=== PATIENT | female | born 1955 | race Caucasian/White ===

== ENCOUNTER 2017-12-17 19:59 | Emergency (ER) | payer MEDICAID, SELFPAY ==
[2017-12-17] VITALS (19 sets, daily range): BP systolic 162–192; BP diastolic 69–116; PULSE 60–82; RESP 18; TEMP 36.8; O2SAT 94–98
--- NOTE | 2017-12-17 19:51 | DI.CT_ITS ---
SYMPTOMS/DIAGNOSIS: FALL, RT FRONTAL TRAUMA, PAIN CT BRAIN: Noncontrast examination was performed. Comparison is 07/08/16. Prominence of the ventricles and sulci are present consistent with the patient's age. Areas of decreased attenuation are seen in the white matter consistent with small vessel ischemic disease. 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 No acute infarct, hemorrhage, midline shift or mass effect is identified. The ventricles are intact. The basilar cisterns are patent. There is no evidence of a skull fracture. There is a right frontal scalp hematoma present. IMPRESSION: 1. No acute intracranial process. 2. Right frontal scalp hematoma. CT SCAN OF THE CERVICAL SPINE: Multiple contiguous axial images of the cervical spine were obtained. Sagittal and coronal reformatted images were evaluated on the Siemens workstation. The odontoid is intact. The lateral masses are well aligned. There is normal alignment of the cervical spine. No acute fractures or subluxations are seen. Degenerative changes are present in the spine particularly at the C 5 - 6 level. The visualized lung apices are clear. There is a calcified lymph node seen in the left neck which is likely secondary to prior infection. IMPRESSION: No acute fracture or subluxation of the cervical spine.
--- NOTE | 2017-12-17 19:51 | W.ED.GENAD ---
Discharge Plan Disposition Patient Disposition: HOME Condition: Improving Discharge Details Chief Complaint: HeadInjury Clinical Impression: Contusion of hand, right, Contusion of forehead Reason For Visit: ILSA Primary Care Provider: José Doan ED Provider: Beto Bello Home Meds and New Rx's Prescriptions: Continue simvastatin 5 MG tablet 5 mg PO DAILY RF: 0 Discharge Instructions Instructions: Contusion in Adults (ED) Additional Instructions: You have a skin tear of the right hand for which a thin film/clear dressing was placed called Mepilex. This should stay in place for 7 days. You may remove the outer wrapping tomorrow. Continue efforts to decrease your alcohol use. Please follow-up with Dr. Doan for your routine care. You will develop bruising around the swelling of your right forehead as well as the right hand. Medical Decision Making 62-year-old female with ground-level mechanical fall with resultant right frontal head trauma and trauma to the dorsum of the right hand. Question of alcohol involvement. She arrives stable and interactive with obvious right frontal trauma. The patient states her tetanus is up to date. Patient said her tetanus status is up-to-date. She was referred for CT scan of the head & cervical spine and x-ray of the right hand. Laboratory analysis obtained. Patient is intoxicated with an alcohol level of 0.18. Her CBC, chemistries, INR are reassuring. Images do not reveal underlying osseous injury of the extremity. CT scan of the head and cervical spine are unremarkable. Patient was cleared from cervical spine precautions. Mepilex dressing was placed to the skin tear on the right hand which I will ask her to leave in place for 7 days. She will develop a hematoma of the right forehead as well as of the hand I discussed this with her. She is clinically sober, she lives at [facility] and is appropriate for discharge. HPI General Mode of arrival: EMS. Date/Time Provider Initiated Documentation: 12/17/17 20:09. Limitations to Documentation: no limitations. Information obtained by: patient and EMS. History of Present Illness described as mild, Quality is described as aching, and is localized to the head and right. Patient reports no radiation. Patient started experiencing this minute(s) No relieving factors improve symptom(s), No exacerbating factors reported . HPI Narrative: Fall and head injury: 62-year-old female states she had 3 alcoholic beverages tonight, was outside her home when she tripped and fell forward striking her head on the ground without loss of consciousness. She suffered right frontal hematoma and contusion to the right hand. She initially refused transport, return to home, then ambulance is called. States she has dull, achy, constant discomfort that is mild Related Data Home Medications Medication Instructions Recorded Confirmed simvastatin 5 mg PO DAILY tab-cap 08/25/15 Ibuprofen 400 mg PO Q6H PRN PRN 10/21/16 10/21/16 aspirin [Aspirin Low-Strength] 81 mg PO DAILY 10/21/16 10/21/16 atorvastatin [Lipitor] 40 mg PO QPM 10/21/16 10/21/16 clopidogrel [Plavix] 75 mg PO DAILY 10/21/16 10/21/16 lisinopril [Zestril] 30 mg PO DAILY 10/21/16 10/21/16 melatonin 6 mg PO DAILY 10/21/16 10/21/16 omeprazole 20 mg PO DAILY 10/21/16 10/21/16 Allergies Allergy/AdvReac Type Severity Reaction Status Date / Time No Known Allergies Allergy Unverified 12/17/17 20:55 General Stated Complaint: HeadInjury JACINDA: 2 Review of Systems Review of Systems 8 systems reviewed and otherwise - [facility] Social History Smoking/Tobacco Use Status: Current every day Exam Narrative Exam Narrative: GEN: awake, alert, oriented 3. Pleasant, well groomed, interactive. HEAD: Right frontal hematoma, atraumatic no bony tenderness ENT: Mucous membranes moist, oropharynx unremarkable, External ear exam unremarkable EYES: PERRL, EOMI NECK: Full ROM, no ERICA, no menigismus CHEST/RESP: Nontender, clear to auscultation bilateral, no wheeze/rhonchi/rales CARDIOVASCULAR: RRR, no murmur, rub thompson. 2+ Rad pulse bilateral ABDOMEN: Soft, nontender, no mass. +Bowel sounds EXT: Full ROM, no edema, no rash. Swelling and skin tear to the dorsum of the right hand Neuro: Grossly normal neurologic exam, conversant, interactive. Psych: Speech fluent, thoughts congruent, affect normal Course Vital Signs Temperature 36.8 C 12/17/17 19:42 Pulse 60 12/17/17 19:42 Respiratory Rate 18 12/17/17 19:42 Blood Pressure 166/104 H 12/17/17 19:42 Pulse Oximetry 98 12/17/17 19:42 Temperature 36.8 C 12/17/17 19:42 Temperature Source Temporal Artery Scan 12/17/17 19:42 Pulse 60 12/17/17 19:42 Respiratory Rate 18 12/17/17 19:42 Blood Pressure 166/104 H 12/17/17 19:42 Blood Pressure Position Supine 12/17/17 19:42 Pulse Oximetry 98 12/17/17 19:42 Oxygen Delivery Method Room Air 12/17/17 19:42 Oxygen Flow Rate 0 12/17/17 19:42
--- NOTE | 2017-12-17 19:56 | ED.GENADUL_ITS ---
Discharge Plan Disposition Patient Disposition: HOME Condition: Improving Discharge Details Chief Complaint: HeadInjury Clinical Impression: Contusion of hand, right, Contusion of forehead Reason For Visit: ILSA Primary Care Provider: José Doan ED Provider: Beto Bello Home Meds and New Rx's Prescriptions: Continue simvastatin 5 MG tablet 5 mg PO DAILY RF: 0 Discharge Instructions Instructions: Contusion in Adults (ED) Additional Instructions: You have a skin tear of the right hand for which a thin film/clear dressing was placed called Mepilex. This should stay in place for 7 days. You may remove the outer wrapping tomorrow. Continue efforts to decrease your alcohol use. Please follow-up with Dr. Doan for your routine care. You will develop bruising around the swelling of your right forehead as well as the right hand. Medical Decision Making 62-year-old female with ground-level mechanical fall with resultant right frontal head trauma and trauma to the dorsum of the right hand. Question of alcohol involvement. She arrives stable and interactive with obvious right frontal trauma. The patient states her tetanus is up to date. Patient said her tetanus status is up-to-date. She was referred for CT scan of the head & cervical spine and x-ray of the right hand. Laboratory analysis obtained. Patient is intoxicated with an alcohol level of 0.18. Her CBC, chemistries, INR are reassuring. Images do not reveal underlying osseous injury of the extremity. CT scan of the head and cervical spine are unremarkable. Patient was cleared from cervical spine precautions. Mepilex dressing was placed to the skin tear on the right hand which I will ask her to leave in place for 7 days. She will develop a hematoma of the right forehead as well as of the hand I discussed this with her. She is clinically sober, she lives at [facility] and is appropriate for discharge. HPI General Mode of arrival: EMS . Date/Time Provider Initiated Documentation: 12/17/17 20:09 . Limitations to Documentation: no limitations . Information obtained by: patient and EMS . History of Present Illness described as mild, Quality is described as aching, and is localized to the head and right. Patient reports no radiation. Patient started experiencing this minute(s) No relieving factors improve symptom(s), No exacerbating factors reported . HPI Narrative: Fall and head injury: 62-year-old female states she had 3 alcoholic beverages tonight, was outside her home when she tripped and fell forward striking her head on the ground without loss of consciousness. She suffered right frontal hematoma and contusion to the right hand. She initially refused transport, return to home, then ambulance is called. States she has dull, achy, constant discomfort that is mild Related Data Home Medications Medication Instructions Recorded Confirmed simvastatin 5 mg PO DAILY tab-cap 08/25/15 Ibuprofen 400 mg PO Q6H PRN PRN 10/21/16 10/21/16 aspirin [Aspirin Low-Strength] 81 mg PO DAILY 10/21/16 10/21/16 atorvastatin [Lipitor] 40 mg PO QPM 10/21/16 10/21/16 clopidogrel [Plavix] 75 mg PO DAILY 10/21/16 10/21/16 lisinopril [Zestril] 30 mg PO DAILY 10/21/16 10/21/16 melatonin 6 mg PO DAILY 10/21/16 10/21/16 omeprazole 20 mg PO DAILY 10/21/16 10/21/16 Allergies Allergy/AdvReac Type Severity Reaction Status Date / Time No Known Allergies Allergy Unverified 12/17/17 20:55 General Stated Complaint: HeadInjury JACINDA: 2 Review of Systems Review of Systems 8 systems reviewed and otherwise - [facility] Social History Smoking/Tobacco Use Status: Current every day Exam Narrative Exam Narrative: GEN: awake, alert, oriented 3. Pleasant, well groomed, interactive. HEAD: Right frontal hematoma, atraumatic no bony tenderness ENT: Mucous membranes moist, oropharynx unremarkable, External ear exam unremarkable EYES: PERRL, EOMI NECK: Full ROM, no ERICA, no menigismus CHEST/RESP: Nontender, clear to auscultation bilateral, no wheeze/rhonchi/rales CARDIOVASCULAR: RRR, no murmur, rub thompson. 2+ Rad pulse bilateral ABDOMEN: Soft, nontender, no mass. +Bowel sounds EXT: Full ROM, no edema, no rash. Swelling and skin tear to the dorsum of the right hand Neuro: Grossly normal neurologic exam, conversant, interactive. Psych: Speech fluent, thoughts congruent, affect normal Course Vital Signs Temperature 36.8 C 12/17/17 19:42 Pulse 60 12/17/17 19:42 Respiratory Rate 18 12/17/17 19:42 Blood Pressure 166/104 H 12/17/17 19:42 Pulse Oximetry 98 12/17/17 19:42 Temperature 36.8 C 12/17/17 19:42 Temperature Source Temporal Artery Scan 12/17/17 19:42 Pulse 60 12/17/17 19:42 Respiratory Rate 18 12/17/17 19:42 Blood Pressure 166/104 H 12/17/17 19:42 Blood Pressure Position Supine 12/17/17 19:42 Pulse Oximetry 98 12/17/17 19:42 Oxygen Delivery Method Room Air 12/17/17 19:42 Oxygen Flow Rate 0 12/17/17 19:42
--- NOTE | 2017-12-17 19:56 | DI.RAD_ITS ---
SYMPTOMS/DIAGNOSIS: FALL, DORSAL HAND PAIN AND SWELLING, ELBOW PAIN RIGHT ELBOW: Three views. No acute fracture or dislocation is identified. There is soft tissue swelling about the elbow. No radiopaque foreign bodies are present. IMPRESSION: No acute fracture or dislocation. RIGHT HAND: Three views. No priors. There is bandage material overlying the right hand which does obscure the underlying bony detail. The bones appear osteopenic. No definite acute fracture or dislocation is seen. IMPRESSION: 1. No acute abnormality. 2. Suboptimal examination due to overlying bandage material.
[2017-12-17] MEDS: Normal Saline 1,000 ML 150 ML IV (20:08)
[2017-12-17 20:13] LABS: Abs Immature Grans 0.01 k/cumm (0.0-0.09); Absolute Basophil Count 0.03 k/cumm (0.0-0.2); Absolute Eosinophil Count 0.04 k/cumm (0.0-0.7); Absolute Lymphocyte Count 1.61 k/cumm (1.2-3.4); Absolute Monocyte Count 0.55 k/cumm (0.11-0.7); Absolute Neutrophil Count 5.86 k/cumm (1.2-6.7); Basophils % 0.4; Eosinophils % 0.5; HCT 38.5 % (36.0-46.0); Immature Grans % 0.1; Lymphocytes % 19.9; Mean Corp. HGB Concentration 33.8 g/dL (32.0-36.0); Mean Corpuscular Hemoglobin 31.9 pg (27.0-33.0); Mean Corpuscular Volume 94.6 fL (80-95); Monocytes % 6.8; Neutrophils % 72.3; Platelet Count 264 x1000/uL (130-400); RBC 4.07 m/cumm (4.00-5.20); RBC Distribution Width 12.6 % (11.7-14.6)
[2017-12-17 20:17] LABS: Prothrombin Time 9.9 sec (9.3-10.8)
[2017-12-17 20:18] LABS: ETHANOL BLOOD 182.9 mg/dL (<3)
[2017-12-17 20:21] LABS: ALT 27 U/L (12-78); AST 28 U/L (15-37); Alkaline Phosphatase 89 U/L (46-116); Anion Gap 12.2 mmol/L (3-11); BUN 8 mg/dL (7-18); Bilirubin, Total 0.5 mg/dL (0.2-1.0); CO2 24.8 mmol/L (21.0-32.0); CREATININE 0.45 mg/dL (0.55-1.02); Calcium 8.7 mg/dL (8.5-10.1); Chloride 98 mmol/L (98-107); Glucose 84 mg/dL (70-100); Potassium 3.6 mmol/L (3.5-5.1); Sodium 135 mmol/L (136-145)
--- NOTE | 2017-12-17 21:08 | DI.VRAD_ITS ---
EXAM: XR Right Hand Complete, 3 or more Views EXAM DATE/TIME: 12/17/2017 7:57 PM CLINICAL HISTORY: 62 years old, female; Pain; Hand; Right; Patient HX: Fall, r dorsal hand swelling and pain TECHNIQUE: XR Right hand 3 or more views. COMPARISON: No relevant prior studies available. FINDINGS: Bones/joints: Bandaging material is seen about the hand and wrist, and somewhat limits evaluation. Diffuse osteopenia with moderate degenerative changes of joints of the hand and wrist. There is suboptimal positioning of the hand and wrist with no acute fracture or subluxation. Soft tissues: Normal. IMPRESSION: No acute osseous findings. Dictated and Authenticated by: Remi Weiner MD. Ordering:JOSE G CUTLER MD
--- NOTE | 2017-12-17 21:08 | DI.VRAD_ITS ---
EXAM: XR Right Elbow Complete, 3 or more Views EXAM DATE/TIME: 12/17/2017 8:12 PM CLINICAL HISTORY: 62 years old, female; Pain; Elbow; Right; Patient HX: Fall, elbow pain TECHNIQUE: XR Right elbow 3 or more views. COMPARISON: No relevant prior studies available. FINDINGS: Bones/joints: Normal. No acute fracture or subluxation. Soft tissues: Soft tissue swelling is noted about the elbow joint. IMPRESSION: No acute osseous findings. Dictated and Authenticated by: Remi Weiner MD. Ordering:JOSE G CUTLER MD
--- NOTE | 2017-12-17 21:14 | DI.VRAD_ITS ---
EXAM: CT Head Without Intravenous Contrast EXAM DATE/TIME: 12/17/2017 7:54 PM CLINICAL HISTORY: 62 years old, female; Injury or trauma; Fall; Initial encounter; Blunt trauma (contusions or hematomas); Injury details: Fall, r frontal trauma, pain; Patient HX: On blood thinners TECHNIQUE: Axial computed tomography images of the head/brain without intravenous contrast. Coronal and sagittal reformatted images were created and reviewed. 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 Ventricles: Normal. No ventriculomegaly. Bones/joints: Normal. No acute fracture. Sinuses: Normal as visualized. No acute sinusitis. Mastoid air cells: Normal as visualized. No mastoid effusion. Soft tissues: A superficial hematoma is present in the right frontal superficial soft tissues. IMPRESSION: No acute intracranial findings. EXAM: CT Cervical Spine Without Intravenous Contrast EXAM DATE/TIME: 12/17/2017 7:54 PM CLINICAL HISTORY: 62 years old, female; Injury or trauma; Fall; Initial encounter; Blunt trauma (contusions or hematomas); Injury details: Fall, r frontal trauma, pain; Patient HX: On blood thinners TECHNIQUE: Axial computed tomography images of the cervical spine without intravenous contrast. Coronal and sagittal reformatted images were created and reviewed. COMPARISON: CT HEAD WITHOUT CONTRAST 07/08/2016 10:55 AM FINDINGS: Discs/Spinal canal/Neural foramina: There are moderate degenerative changes with no areas of severe canal stenosis. Erosive endplate changes are present at C5-C6. No acute fracture or subluxation. Soft tissues: Unremarkable. Lungs: Normal. Lymph nodes: A partially calcified lymph node is present the left sternocleidomastoid muscle and likely represents sequela of prior infection. IMPRESSION: No acute findings. Dictated and Authenticated by: Remi Weiner MD. Ordering:JOSE G CUTLER MD
== END 2017-12-17 22:15 | disposition home or self-care (01) ==
LOC: ER 21:52
PROVIDERS: Emergency Provider Emergency Medicine; PCP Family Medicine
DX: S00.83XA Contusion of other part of head, initial encounter (principal); S61.411A Laceration without foreign body of right hand, initial encounter; W18.30XA Fall on same level, unspecified, initial encounter; F10.129 Alcohol abuse with intoxication, unspecified; Y90.6 Blood alcohol level of 120-199 mg/100 ml; I10 Essential (primary) hypertension
CPT/HCPCS: 36415; 80053; 96360; 96361; 99284; 70450; 72125; 73080; 73130; 80320; 85025; 85610; 99283

== ENCOUNTER 2017-12-19 16:09 | Emergency (ER) | payer MEDICAID, SELFPAY ==
[2017-12-19 16:28] VITALS: BP 172/99; PULSE 86; RESP 17; TEMP 36.4; O2SAT 96
== END 2017-12-19 18:40 ==
PROVIDERS: Emergency Provider Student in an Organized Health Care Education/Training Program; PCP Family Medicine
DX: Z53.29 Procedure and treatment not carried out because of patient's decision for other reasons (principal)
CPT/HCPCS: L3650